=== PATIENT | male | born 1995 | race Caucasian/White ===

== ENCOUNTER 2017-05-29 04:51 | Emergency (ER) | payer BC ==
--- NOTE | 2017-05-29 04:55 | ED ---
General Adult HPI - General Stated complaint: chest pain Time Seen by Provider: 05/29/17 04:55 Source: RN notes reviewed, old records reviewed - History of Present Illness Initial comments: This is a 21-year-old male to the ER prevention chest pain. Patient does have history of high blood pressure. Significant left-sided chest pain. Pain started when the patient got into bed just prior to coming to the ER tonight. Patient jumped backwards into his back and began to have pain left-sided his chest. Said for and this pain seemed to be made worse when he fell forward. Patient did take Motrin with mild improvement but no significant help. Patient states pain still is fair. No shortness of breath no diaphoresis. Patient does admit to increased pain with movement but mainly increased with a deep breath - Related Data Home Medications Medication Instructions Recorded Confirmed Hydrochlorothiazide 12.5 mg PO DAILY 05/29/17 05/29/17 Losartan Potassium [Cozaar] 50 mg PO DAILY 05/29/17 05/29/17 Allergies Allergy/AdvReac Type Severity Reaction Status Date / Time No Known Allergies Allergy Verified 05/29/17 04:58 Review of Systems ROS Statement: Those systems with pertinent positive or pertinent negative responses have been documented in the HPI. ROS Other: All systems not noted in ROS Statement are negative. General Exam - General Exam Comments Initial Comments: Patient does have left-sided anterior reproducible chest pain to palpation General appearance: alert, in no apparent distress Head exam: Present: atraumatic, normocephalic, normal inspection Eye exam: Present: normal appearance, PERRL, EOMI. Absent: scleral icterus, conjunctival injection, periorbital swelling ENT exam: Present: normal exam, mucous membranes moist Neck exam: Present: normal inspection. Absent: tenderness, meningismus, lymphadenopathy Respiratory exam: Present: normal lung sounds bilaterally. Absent: respiratory distress, wheezes, rales, rhonchi, stridor Cardiovascular Exam: Present: regular rate, normal rhythm, normal heart sounds. Absent: systolic murmur, diastolic murmur, rubs, gallop, clicks GI/Abdominal exam: Present: soft, normal bowel sounds. Absent: distended, tenderness, guarding, rebound, rigid Extremities exam: Present: normal inspection, full ROM, normal capillary refill. Absent: tenderness, pedal edema, joint swelling, calf tenderness Back exam: Present: normal inspection Neurological exam: Present: alert, oriented X3, CN II-XII intact Psychiatric exam: Present: normal affect, normal mood Skin exam: Present: warm, dry, intact, normal color. Absent: rash Course Vital Signs 05/29/17 04:54 Temperature 97.9 F Pulse Rate 62 Respiratory 18 Rate Blood Pressure 126/82 O2 Sat by Pulse 100 Oximetry - Reevaluation(s) Reevaluation #1: 05/29/17 05:11 Patient does have chest pain maybe with a deep breath. EKG Findings - EKG Comments: EKG Findings:: EKG shows sinus bradycardia rate 55, ND 144, QRS 110, QTc 4:15 Medical Decision Making - Radiology Data Radiology results: report reviewed (Chest x-rays negative for acute disease), image reviewed Disposition Clinical Impression: Chest pain, Costalchondritis Disposition: HOME SELF-CARE Condition: Good Instructions: Costochondritis (ED) Referrals: Uday Eduardo MD [Primary Care Provider] - 1-2 days
[2017-05-29 04:58] VITALS: PULSE 62; RESP 18
[2017-05-29] MEDS ORDERED: ACETAMINOPHEN TAB 500 MG TAB PO STA (05:10)
[2017-05-29] MEDS ORDERED: KETOROLAC 60 MG/2 ML VIAL IM STA (05:10)
--- NOTE | 2017-05-29 05:27 | XR ---
EXAM: XR Chest, 2 Views CLINICAL HISTORY: ITS.REASON XR Reason: Pain TECHNIQUE: Frontal and lateral views of the chest. COMPARISON: No relevant prior studies available. FINDINGS: Lungs: Unremarkable. No consolidation. Pleural space: Unremarkable. No pneumothorax. Heart: Unremarkable. No cardiomegaly. Mediastinum: Unremarkable. Bones/joints: Unremarkable. IMPRESSION: Normal chest x-rays.
[2017-05-29] MEDS ORDERED: SODIUM CHLORIDE 0.9% 1,000 ML IV STA (05:40)
[2017-05-29] MEDS ORDERED: MORPHINE SULFATE 4 MG/ML SYRINGE IV STA (05:40)
[2017-05-29] MEDS ORDERED: RX INFO: IV CONTRAST WAS GIVEN 1 EACH MISC MISCELLANE PRN (05:41)
[2017-05-29 05:54] VITALS: BP 124/78; TEMP 97.7
== END 2017-05-29 05:53 | disposition home or self-care (01) ==
LOC: EC 04:51 → SUPCPDRO 04:51 → EC 05:53
DX: M94.0 Chondrocostal junction syndrome [Tietze] (principal); Z79.899 Other long term (current) drug therapy
CPT/HCPCS: 93005; 71046; 99285; 96372; J1885